=== PATIENT | female | born 1955 | race Caucasian/White ===

== ENCOUNTER 2016-09-03 07:45 | Day surgery (SDC) | payer BC ==
[~2016-09-03] VITALS: Ht 172.7 cm; Wt 81.6 kg
[~2016-09-03 07:45] MED LIST: ZITHROMAX250 MG PO
[2016-09-03 08:30] LABS: BASOPHILS 0.5 % (0-2); EOSINOPHILS 3.3 % (0-7); HEMATOCRIT 44.7 % (36.0-48.0); HEMOGLOBIN 15.6 g/dL (12-16); IMMATURE GRANULOCYTES 0.2 % (0-5); LYMPHOCYTES 34.1 % (15-50); MCHC 34.9 g/dL (31.0-37.0); MCV 94.5 fL (80.0-100.0); MEAN PLATELET VOLUME 11.4 fL (7.4-10.4); MONOCYTES 8.8 % (2-11); NEUTROPHILS 53.1 % (40-80); PLATELET COUNT 197 10x3/uL (130-400); RBC 4.73 10x6/uL (4.00-5.40)
[2016-09-03 08:58] LABS: CALC OSMOLALITY 285 mosm/kg (275-300); CALCIUM 9.2 mg/dL (8.5-10.1); CARBON DIOXIDE 29.9 mmol/L (21.0-32.0); CHLORIDE - SERUM 105 mmol/L (98-107); CREATININE - SERUM 0.8 mg/dL (0.6-1.3); GLUCOSE 104 mg/dL (74-106); SODIUM 143 mmol/L (136-145); UREA NITROGEN 16 mg/dL (7-18); eGFR NON AFRICAN AMERICAN 77 mL/min (90-120)
[2016-09-03] MEDS ORDERED: ROBAXIN-750750 MG PO (09:07)
[2016-09-03 09:08] VITALS: BP 162/89; Ht 172.7 cm; Wt 81.6 kg
[2016-09-03] MEDS ORDERED: HYDROCODONE-APA1 TAB PO (12:07)
--- NOTE | 2016-09-03 14:24 | NUR ---
1315--PT COMPLAINS OF NAUSEA, REPORT OF NAUSEA GIVEN TO DR KIM, NEW ORDERS RECIEVED. HGRAMONIKA RN
--- NOTE | 2016-09-03 14:25 | NUR ---
1345--ZOFRAN 4MG GIVEN SIVP. SUZY BLEDSOE 1350--DECADRON 8MG GIVEN SIVP OVER 5 MINUTES. SUZY BLEDSOE
--- NOTE | 2016-09-03 15:15 | NUR ---
1515--12.5MG PHENERGAN GIVEN SIVP FOR NAUSEA. SUZY BLEDSOE
--- NOTE | 2016-09-03 15:49 | NUR ---
8350--PT VOIDS WITHOUT DIFFICULTY, IV DC'D. SUZY BLEDSOE 6400--DISCHARGE INSTRUCTIONS GIVEN, PT VERBALIZES UNDERSTANDING. PT OFF UNIT VIA WC. SUZY BLEDSOE
--- NOTE | 2016-09-04 13:12 | OP ---
PATIENT NAME: ADOLFO HIDALGO MEDICAL RECORD: [id number] :53 LOCATION:D.OPS ADMISSION DATE: SURGEON: CARLOS NIEVES MD DATE OF OPERATION: 09/03/2016 PREOPERATIVE DIAGNOSES: 1. Gallstones. 2. Hypertension. POSTOPERATIVE DIAGNOSES: 1. Gallstones. 2. Hypertension. PROCEDURE: Laparoscopic cholecystectomy. SURGEON: Carlos Nieves M.D. REPORT OF PROCEDURE: The patient's abdomen was prepped and draped in sterile fashion. A cutdown was made on the superior aspect of the umbilicus, 0 Vicryls were placed in the fascia bilaterally and the fascia was incised with a 15 blade and then bluntly entered the peritoneal cavity and placed a 12-mm Angela port. Under direct visualization, a 5 mm trocar was placed in the epigastrium and 2 more 5-mm trocars were placed in the right subcostal region. The gallbladder was grasped and elevated. There is no sign of inflammatory changes. The cystic artery and cystic duct were dissected free and these were clipped proximally and distally and ligated in standard fashion. The gallbladder was taken off the liver bed using electrocautery and placed into the right upper quadrant. Any bleeding from the liver bed was then treated with electrocautery. We irrigated out the right upper quadrant and assured there was no sign of any bleeding or bile leakage. At this point, the ports and insufflation were then removed and the gallbladder was taken out through the umbilicus. The umbilical fascia was closed with interrupted 0 Vicryls times 3. The wounds were irrigated out with normal saline and infused with 10 mL of 0.25% Marcaine with epinephrine. The skin incisions were all closed with subcutaneous 5-0 Monocryl and dressed appropriately. COMPLICATIONS: None. CONDITION: Stable. ANESTHESIA: General endotracheal and local. BLOOD LOSS: Minimal. TRANSINT:[id number] Voice Confirmation ID: [id number] DOCUMENT ID: [id number] CARLOS NIEVES MD at 1312 CC: MARIA FERNANDA JONES MD [id number] DICTATION DATE: 09/03/16 1210 WAGE ANALYST: 09/03/163 [facility] 09/03/16 [place] [address]
== END 2016-09-03 15:50 | disposition home or self-care (01) ==
LOC: D.OPS 07:45 → D.PAN 10:20 → D.OPS 11:00
PROVIDERS: Surgery
DX: K80.80 Other cholelithiasis without obstruction (principal); I10 Essential (primary) hypertension; Z01.812 Encounter for preprocedural laboratory examination